=== PATIENT | female | born 1990 | race Caucasian/White ===

== ENCOUNTER 2018-02-25 19:21 | Emergency (ER) | payer OTHER, BC ==
[2018-02-25 19:31] VITALS: BP 119/95
[2018-02-25] MEDS: Acetaminophen/oxyCODONE 325-5 MG Tab PO ONE ×2 (20:14→20:24)
[2018-02-25] MEDS ORDERED: Ondansetron 4 MG Tab.DIS PO ONE (20:18)
--- NOTE | 2018-02-25 21:52 | EDM.PDOC ---
ED HPI GENERAL MEDICAL PROBLEM - General Chief Complaint: Upper Extremity Injury/Pain Stated Complaint: FELL DOWN STAIRS Time Seen by Provider: 02/25/18 19:57 Source of Information: Reports: Patient History Limitations: Reports: No Limitations - History of Present Illness INITIAL COMMENTS - FREE TEXT/NARRATIVE: 27-year-old female presents for evaluation and treatment of injuries sustained from a fall. Patient reports that she felt a full flight of stairs work. 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 She was moving a vacuum, the stairs. Unsure exactly how she fell or what happened. States that she fell down a full flight of stairs. No syncope. She is currently complaining of nausea, headache, left shoulder pain , left hip pain and left knee pain. She denies any syncope, vomiting, vision changes, bloody nose, loose teeth, chest pain, lightheadedness, dizziness, neck pain, back pain or abdominal pain. She reports that she initially had some vision changes but has since resolved. No treatment prior to arrival. This occurred around 1830 this evening. 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 - Past Surgical History HEENT Surgical History: Reports: Oral Surgery, Tonsillectomy Respiratory Surgical History: Reports: None GI Surgical History: Reports: Appendectomy Social & Family History - Tobacco Use Smoking Status *Q: Current Every Day Smoker Years of Tobacco use: 5 Packs/Tins Daily: 0.5 Used Tobacco, but Quit: Yes Month/Year Tobacco Last Used: unknown Second Hand Smoke Exposure: No - Alcohol Use Days Per Week of Alcohol Use: 0 - Recreational Drug Use Recreational Drug Use: No Review of Systems - Review of Systems Review Of Systems: See Below Eyes: Denies: Vision Change Nose: Denies: Epistaxis Mouth/Throat: Denies: Loose Teeth Cardiovascular: Denies: Chest Pain GI/Abdominal: Reports: Nausea. Denies: Abdominal Pain, Vomiting Musculoskeletal: Reports: Joint Pain (left shuolder, left hip and left knee). Denies: Neck Pain, Back Pain Neurological: Reports: Headache, Difficulty Walking. Denies: Syncope ED EXAM, GENERAL - Physical Exam Exam: See Below Exam Limited By: No Limitations General Appearance: Alert, WD/WN, No Apparent Distress, Anxious, Thin Eye Exam: Bilateral Eye: EOMI, Normal Inspection, PERRL Ears: Normal External Exam Nose: Normal Inspection Throat/Mouth: Normal Inspection, Normal Lips, Normal Voice, No Airway Compromise Neck: Normal Inspection, Supple, Non-Tender, Full Range of Motion Respiratory/Chest: No Respiratory Distress, Lungs Clear, Normal Breath Sounds, Chest Non-Tender Cardiovascular: Normal Peripheral Pulses, Regular Rate, Rhythm, No Murmur Peripheral Pulses: 2+: Radial (L), Radial (R), Posterior Tibial (L), Posterior Tibial (R), Dorsalis Pedis (L), Dorsalis Pedis (R) GI/Abdominal: Normal Bowel Sounds, Soft, Non-Tender Back Exam: Normal Inspection Extremities: Normal Inspection, Other (no obvious deformity; tenderness to palpation to the left shoulder, left iliac crest, left greater trochanter and left patella; pain with flexion of the left knee > 70 degrees, full ROm of the left hip, pain wth ROm to the left shoulder unable to flex more than 30 degrees , abduct more than 30 degrees, unable to extend of adduct) Neurological: Alert, Oriented, CN II-XII Intact, Normal Cognition Psychiatric: Normal Affect, Normal Mood Skin Exam: Warm, Dry, Normal Color Course - Vital Signs Last Recorded V/S: Last Vital Signs Temp 37.1 C 02/25/18 19:27 Pulse 102 H 02/25/18 19:27 Resp 16 02/25/18 19:27 BP 119/95 H 02/25/18 19:27 Pulse Ox 99 02/25/18 19:27 - Orders/Labs/Meds Meds: Medications Discontinued Medications Generic Name Dose Route Start Last Admin Trade Name Curt PRN Reason Stop Dose Admin Ondansetron HCl 4 mg 02/25/18 20:18 02/25/18 20:24 Zofran Odt PO 02/25/18 20:19 4 mg ONETIME ONE Administration Oxycodone/Acetaminophen 1 tab 02/25/18 20:08 02/25/18 20:24 Percocet 325-5 Mg PO 02/25/18 20:09 1 tab ONETIME ONE Administration - Radiology Interpretation Free Text/Narrative:: CT of the head without contrast impression per [facility]: No acute intracranial process. xray of the left knee shows no acute fractures or dislocations xray of the pelvis and left hip shows no acute fractures or dislocations xray of the left shoulder shows no acute fractures or discolorations xray of the chest shows scolosis, no acute intrathoracic process - Re-Assessments/Exams Free Text/Narrative Re-Assessment/Exam: 02/25/18 21:46 I reviewed the imaging with the patient. Pain improved is now having most discomfort to the left hip and left proximal femur . Will take out of work for a few days for soft tissue injury. Follow-up with PCP. Discharge instructions as documented. Departure - Departure Time of Disposition: 21:49 Disposition: Home, Self-Care 01 Condition: Fair Clinical Impression: Fall, Soft tissue injury - Discharge Information Prescriptions: Acetaminophen/oxyCODONE [Percocet 325-5 MG] 1 tab PO Q6HR PRN #10 tab PRN Reason: Pain Ondansetron [Zofran ODT] 4 mg PO Q6H PRN #12 tab.dis PRN Reason: Nausea Instructions: Contusion, [id number] Referrals: Dawn Montgomery NP [Primary Care Provider] - Forms: ED Department Discharge, ED Return to Work/School Form Additional Instructions: Rest. Make sure you are Drinking plenty of fluids. Note given for work. May return Saturday if symptoms have improved, light-duty. [id number] Tylenol or Motrin seen for pain relief. For pain not relieved by Tylenol or Motrin he may take Percocet 1 tab every 4-6 hours. Percocet is habit-forming, I recommend you take as few of these as needed to control your pain. Do not take more than 3200 mg of ibuprofen from all sources in 1 day. Do not take more than 4 g of Tylenol from all sources in 1 day. Follow-up primary care provider early next week for recheck of your symptoms. Expect to be sore the next 1-2 weeks. The first 3-4 days will be the worst. Recommed ice or heat for additional pain relief. Please return to the ER if your symptoms change or worsen
--- NOTE | 2018-02-26 07:09 | CR ---
Frontal view of the chest was obtained. Comparison: No prior study. Mild scoliosis is seen. Heart size and mediastinum are normal. Lungs are clear. No acute bony abnormality is appreciated. Impression: 1. Slight scoliosis. Nothing acute is appreciated on frontal chest x-ray. Diagnostic code #2
--- NOTE | 2018-02-26 07:09 | CR ---
Left knee: Four views of the left knee were obtained. Comparison: No previous knee exam. Joint spaces appear preserved. No joint effusion is seen. No fracture, dislocation or other bony abnormality is seen. Impression: 1. No bony abnormality is seen on left knee exam. Diagnostic code #1
--- NOTE | 2018-02-26 07:09 | CR ---
Left shoulder: Three views of the left shoulder were obtained. Comparison: No prior shoulder study. Glenohumeral joint and acromioclavicular joint appear within normal limits. No fracture, dislocation or other bony abnormality is seen. Impression: 1. No abnormality is seen on three-view left shoulder study. Diagnostic code #1
--- NOTE | 2018-02-26 07:09 | CR ---
Pelvis and left hip: AP view of the pelvis was obtained as well as AP and frog-leg lateral views of the left hip. Comparison: No prior study. Incidental IUD is present. Sacroiliac joints are within normal limits. Joint spaces within both hips are maintained. No fracture or other abnormality is seen. Impression: 1. Nothing acute is seen on AP pelvis or on two-view left hip study. Diagnostic code #2
--- NOTE | 2018-02-26 07:09 | CT ---
Head CT Technique: Multiple axial sections were obtained through the brain. Intravenous contrast was not utilized. Comparison: No previous intracranial imaging. Findings: Ventricles along with basal cisterns and sulci over the convexities are within normal limits for the patient's age. No abnormal parenchymal densities are seen. No evidence of intracranial hemorrhage. No midline shift or mass effect is seen. Bone window settings were reviewed which show no acute calvarial abnormality. Mild areas of mucosal thickening are seen within the ethmoid sinuses. Impression: 1. Minimal sinus findings which are felt to be incidental. 2. No acute intracranial abnormality is identified. Diagnostic code #2 I agree with preliminary report issued by [facility] ([facility] preliminary report dictated on 02/25/18, 10:07 PM Central Time)
== END 2018-02-25 22:08 | disposition home or self-care (01) ==
LOC: JD.ED 19:21
DX: S79.912A Unspecified injury of left hip, initial encounter (principal); S49.92XA Unspecified injury of left shoulder and upper arm, initial encounter; S89.92XA Unspecified injury of left lower leg, initial encounter; F17.210 Nicotine dependence, cigarettes, uncomplicated; Z91.011 Allergy to milk products; Z91.09 Other allergy status, other than to drugs and biological substances; W10.9XXA Fall (on) (from) unspecified stairs and steps, initial encounter; Y99.0 Civilian activity done for income or pay
CPT/HCPCS: 70450; 71045; 73030; 73502; 73564; 99284; A9270; 99283

== ENCOUNTER 2021-12-05 20:53 | Emergency (ER) | payer BC, OTHER ==
[2021-12-05] MEDS ORDERED: Albuterol/Ipratropium 3.0-0.5 MG/3 ML Neb Soln NEB ONE (21:03)
--- NOTE | 2021-12-05 21:06 | EDM.PDOC ---
ED HPI GENERAL MEDICAL PROBLEM - General Chief Complaint: Respiratory Problem Stated Complaint: DIFFICULTY BREATHING Time Seen by Provider: 12/05/21 21:03 - History of Present Illness INITIAL COMMENTS - FREE TEXT/NARRATIVE: 31-year-old female presents the emergency room with worsening asthma stomach upset and shortness of breath. The patient's son was just diagnosed with influenza a. Over the last couple days she is been getting upset stomach and increasing shortness of breath. The patient symptoms started Saturday evening well over 48 hours ago. Patient has longstanding asthma. She is tried nebulizers at home without much success. Has some stomach upset with some nausea. Her O2 saturation at home has been adequate but she feels like she just cannot catch her breath. Chest Pain Score (Numeric/FACES): 10 - Related Data Allergies Allergy/AdvReac Type Severity Reaction Status Date / Time almond oil Allergy Unknown Anaphylactic Verified 10/01/18 10:28 Shock milk Allergy Diarrhea Verified 10/01/18 10:28 Home Meds: Home Meds Budesonide/Formoterol Fumarate [Symbicort 160-4.5 Mcg Inhaler] 2 puff INH BID 10/01/18 [History] Ondansetron [Ondansetron ODT] 4 mg PO Q6H PRN #15 tab.rapdis 12/06/21 [Rx] predniSONE [Prednisone] 40 mg PO QAM #10 tablet 12/06/21 [Rx] Past Medical History HEENT History: Reports: None Respiratory History: Reports: Asthma Gastrointestinal History: Reports: None 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 - Past Surgical History HEENT Surgical History: Reports: Oral Surgery, Tonsillectomy Respiratory Surgical History: Reports: None GI Surgical History: Reports: Appendectomy Social & Family History - Caffeine Use Caffeine Use: Reports: None ED ROS GENERAL - Review of Systems Review Of Systems: See Below Constitutional: Reports: Weakness, Fatigue. Denies: Fever, Chills HEENT: Reports: No Symptoms Respiratory: Reports: No Symptoms, Shortness of Breath Cardiovascular: Denies: Chest Pain GI/Abdominal: Reports: Decreased Appetite, Nausea, Vomiting. Denies: Abdominal Pain : Reports: No Symptoms Musculoskeletal: Reports: Other (Neurolysed aches and pains and chest wall discomfort) Skin: Reports: No Symptoms Neurological: Reports: No Symptoms Psychiatric: Reports: No Symptoms Hematologic/Lymphatic: Reports: No Symptoms Immunologic: Reports: No Symptoms ED EXAM, GENERAL - Physical Exam Exam: See Below Exam Limited By: Respiratory Distress General Appearance: Mild Distress (The difficulties and shortness of breath) Eye Exam: Bilateral Eye: Normal Inspection Ears: Normal External Exam, Normal Canal, Hearing Grossly Normal, Normal TMs Nose: Normal Inspection, Normal Mucosa, No Blood Throat/Mouth: Normal Inspection, Normal Lips, Normal Teeth, Normal Gums, Normal Oropharynx, Normal Voice, No Airway Compromise Head: Atraumatic, Normocephalic Neck: Normal Inspection, Supple, Non-Tender, Full Range of Motion. No: Ly mphadenopathy (L), Lymphadenopathy (R) Respiratory/Chest: Decreased Breath Sounds, Wheezing (Few end expiratory wheezes). No: Crackles Cardiovascular: No Edema, No Murmur, Tachycardia GI/Abdominal: Normal Bowel Sounds, Soft, Non-Tender Back Exam: Normal Inspection. No: CVA Tenderness (L), CVA Tenderness (R) Neurological: Alert, Oriented, Normal Cognition Psychiatric: Anxious Course - Vital Signs Last Recorded V/S: Last Vital Signs Temp 36.5 C 12/05/21 21:10 Pulse 111 H 12/05/21 21:10 Resp 40 H 12/05/21 21:10 BP 121/84 12/05/21 21:10 Pulse Ox 99 12/05/21 21:21 - Orders/Labs/Meds Orders: Active Orders 24 hr Category Date Time Status Chest 1V Frontal [CR] Stat Exams 12/05/21 21:11 Taken Labs: Laboratory Tests 12/05/21 12/05/21 12/05/21 Range/Units 21:06 21:15 21:15 WBC 6.69 (3.98-10.04) K/mm3 RBC 5.12 (3.98-5.22) M/mm3 Hgb 16.0 H (11.2-15.7) gm/dl Hct 46.8 H (34.1-44.9) % MCV 91.4 (79.4-94.8) fl MCH 31.3 (25.6-32.2) pg MCHC 34.2 (32.2-35.5) g/dl RDW Std Deviation 41.9 (36.4-46.3) fL Plt Count 265 (182-369) K/mm3 MPV 10.4 (9.4-12.3) fl Neut % (Auto) 72.8 H (34.0-71.1) % Lymph % (Auto) 18.4 L (19.3-51.7) % Riley % (Auto) 8.4 (4.7-12.5) % Eos % (Auto) 0 L (0.7-5.8) Baso % (Auto) 0.3 (0.1-1.2) % Neut # (Auto) 4.87 (1.56-6.13) K/mm3 Lymph # (Auto) 1.23 (1.18-3.74) K/mm3 Riley # (Auto) 0.56 H (0.24-0.36) K/mm3 Eos # (Auto) 0.00 L (0.04-0.36) K/mm3 Baso # (Auto) 0.02 (0.01-0.08) K/mm3 Sodium 141 (136-145) mEq/L Potassium 4.3 (3.5-5.1) mEq/L Chloride 104 (98-107) mEq/L Carbon Dioxide 24 (21-32) mEq/L Anion Gap 17.3 H (5-15) BUN 9 (7-18) mg/dL Creatinine 0.9 (0.55-1.02) mg/dL Est Cr Clr Drug Dosing 82.99 mL/min Estimated GFR (MDRD) > 60 (>60) mL/min BUN/Creatinine Ratio 10.0 L (14-18) Glucose 101 H (70-99) mg/dL Calcium 9.0 (8.5-10.1) mg/dL Total Bilirubin 0.4 (0.2-1.0) mg/dL AST 25 (15-37) U/L ALT 28 (14-59) U/L Alkaline Phosphatase 82 (46-116) U/L Total Protein 7.6 (6.4-8.2) g/dl Albumin 4.0 (3.4-5.0) g/dl Globulin 3.6 gm/dL Albumin/Globulin Ratio 1.1 (1-2) Influenza Type A RNA Positive H (NEGATIVE) Influenza Type B RNA Negative (NEGATIVE) SARS-CoV-2 RNA (ZORAIDA) Negative (NEGATIVE) Meds: Medications Discontinued Medications Generic Name Dose Route Start Last Admin Trade Name Curt PRN Reason Stop Dose Admin Albuterol/Ipratropium 3 ml 12/05/21 21:03 12/05/21 21:21 Albuterol/Ipratropium 3.0-0.5 Mg/3 Ml Neb Soln NEB 12/05/21 21:04 3 ml ONETIME ONE Administration Magnesium Sulfate 2 gm/ Premix 50 mls @ 100 mls/hr 12/05/21 21:10 12/05/21 21:29 IV 12/05/21 21:39 100 mls/hr ONETIME ONE Administration Lorazepam 1 mg 12/05/21 22:23 12/05/21 22:39 Lorazepam 2 Mg/Ml Sdv IVPUSH 12/05/21 22:24 1 mg ONETIME ONE Administration Methylprednisolone Sodium Succinate 125 mg 12/05/21 21:10 12/05/21 21:27 Methylprednisolone Sodium Succinate 125 Mg/2 Ml Sdv IVPUSH 12/05/21 21:11 125 mg ONETIME ONE Administration Ondansetron HCl 4 mg 12/05/21 21:18 12/05/21 21:24 Ondansetron 4 Mg/2 Ml Sdv IVPUSH 12/05/21 21:19 4 mg ONETIME ONE Administration - Re-Assessments/Exams Free Text/Narrative Re-Assessment/Exam: 12/05/21 21:39 Doing much better after nebulizer treatment she has received Solu-Medrol and is getting an infusion of magnesium 12/05/21 22:23 X-ray is unremarkable. Patient is moving air really get 100% on room air she still little anxious and still feels like she cannot catch her breath we will give her a milligram of Ativan and see how this does she is no longer nauseated or vomiting. 12/06/21 00:32 The patient continues to do well she would like to go home at this time. Repeat examination show clear breath sounds. She did cough once. We will discharge her with some Zofran to use as needed and a course of prednisone. She has albuterol nebs at home she can use these every 4 hours as needed. Departure - Departure Time of Disposition: 00:39 Disposition: Home, Self-Care 01 Clinical Impression: Influenza A, Asthma exacerbation - Discharge Information Referrals: Dawn Montgomery NP [Primary Care Provider] - Forms: ED Department Discharge Additional Instructions: Return to the emergency room with any questions problems or worsening symptoms. Use your albuterol nebulizers every 4 hours as needed. You have been started on prednisone take 40 mg starting this morning with breakfast and then every morning for a total of 5 days. I have also given you a prescription for Zofran 4 mg use 1 every 6 hours as needed for nausea and vomiting. Both your prescriptions for the prednisone and the Zofran have been sent electronically to the [facility] pharmacy. Follow-up with your regular physician if needed. You do have influenza A. There is some treatments for this however it needs to be started within 48 hours of the onset of symptoms we are beyond that at this time. Sepsis Event Note (ED) - Focused Exam Vital Signs: Vital Signs Temp Pulse Resp BP Pulse Ox Pulse Ox 12/05/21 21:21 99 12/05/21 21:10 36.5 C 111 H 40 H 121/84 96 - My Orders Last 24 Hours: My Active Orders 12/05/21 21:11 Chest 1V Frontal [CR] Stat - Assessment/Plan Last 24 Hours: My Active Orders 12/05/21 21:11 Chest 1V Frontal [CR] Stat
[2021-12-05] MEDS ORDERED: methylPREDNISolone Sodium Succinate 125 MG/2 ML SDV IVPUSH ONE (21:10)
[2021-12-05] MEDS ORDERED: Magnesium Sulfate/Water 2 GM in Premix Bag 1 BAG IV ONE (21:10)
[2021-12-05 21:13] VITALS: BP 121/84; PULSE 111
[2021-12-05] MEDS ORDERED: Ondansetron 4 MG/2 ML SDV IVPUSH ONE (21:18)
[2021-12-05 22:05] LABS: CORONAVIRUS COVID-19 NAA NEGATIVE (NEGATIVE)
[2021-12-05] MEDS ORDERED: LORazepam 2 MG/ML SDV IVPUSH ONE (22:23)
[2021-12-06] MEDS ORDERED: Ondansetron 4 MG Tab.DIS PO ONE (00:37)
--- NOTE | 2021-12-06 09:40 | CR ---
EXAM: XR CHEST 1 VIEW LOCATION: [facility] DATE/TIME: 12/05/2021 9:33 PM INDICATION: Shortness of breath, cough COMPARISON: None. IMPRESSION: Negative chest. SIGNED BY: John Jones MD 12/05/2021 11:00 PM [facility]
== END 2021-12-06 00:54 | disposition home or self-care (01) ==
LOC: JD.ED 20:53
DX: J10.1 Influenza due to other identified influenza virus with other respiratory manifestations (principal); J45.901 Unspecified asthma with (acute) exacerbation; Z91.011 Allergy to milk products; Z91.048 Other nonmedicinal substance allergy status; Z20.822 Contact with and (suspected) exposure to COVID-19
CPT/HCPCS: 0240U; 36415; 71045; 80053; 85025; 94640; 96365; 96375; 99285; A9270; J2060; J2405; J2930; J3475; J7620-GY

== ENCOUNTER 2024-03-24 04:34 | Inpatient (IN) | payer BC ==
[2024-03-24] MEDS: Nalbuphine 10 MG/ML Syringe IVPUSH ONE (05:21)
[2024-03-24] MEDS: Sodium Chloride 0.9% 10 ML Syringe FLUSH PRN (05:21)
[2024-03-24] MEDS ORDERED: Ondansetron 4 MG in Sodium Chloride 0.9% 50 ML IV ONE (06:34)
[2024-03-24] MEDS: Ondansetron 4 MG/2 ML SDV IV ONE (06:40)
[2024-03-24] MEDS ORDERED: Lidocaine 1% 50 ML MDV INJECT PRN (06:42)
[2024-03-24] MEDS ORDERED: Ondansetron 4 MG/2 ML SDV IVPUSH PRN (06:42)
[2024-03-24] MEDS ORDERED: Oxytocin/Lactated Ringers 30 UNIT/500 ML BAG IV SCH (06:45)
[2024-03-24 07:11] LABS: BASOPHILS PERCENT AUTO 0.3 % (0.0-1.0); EOSINOPHILS PERCENT AUTO 0.3 % (0.0-6.0); HEMATOCRIT 37.5 % (37.0-47.0); HEMOGLOBIN 12.9 gm/dl (12.0-16.0); IMMATURE GRAN ABSOLUTE AUTO 0.05 K/mm3 (0.00-0.05); IMMATURE GRAN PERCENT AUTO 0.4 % (0.0-0.4); LYMPHOCYTES ABSOLUTE AUTO 1.8 K/mm3 (1.0-4.8); LYMPHOCYTES PERCENT AUTO 14.9 % (24.0-44.0); MEAN CORPUSCULAR HEMOGLOBIN 31.1 pg (28.0-32.0); MEAN CORPUSCULAR HGB CONC 34.4 g/dl (32.0-36.0); MEAN CORPUSCULAR VOLUME 90.4 fl (83.0-99.0); MEAN PLATELET VOLUME 11.3 fl (9.4-12.3); MONOCYTES ABSOLUTE AUTO 0.8 K/mm3 (0.0-0.8); MONOCYTES PERCENT AUTO 6.6 % (0.0-8.0); NEUTROPHILS ABSOLUTE AUTO 9.1 K/mm3 (1.8-7.7); NEUTROPHILS PERCENT AUTO 77.5 % (41.0-71.0); PLATELET COUNT,PLT 231 K/mm3 (150-400); RED BLOOD CELL COUNT 4.15 M/mm3 (4.10-5.30); WHITE BLOOD CELL COUNT,WBC 11.71 K/mm3 (3.9-11.3)
[2024-03-24] MEDS: Nalbuphine 10 MG/ML Syringe IVPUSH PRN (08:10)
[2024-03-24] MEDS: Sodium Chloride 0.9% 10 ML Syringe FLUSH SCH (08:13)
[2024-03-24] MEDS ORDERED: ePHEDrine 50 MG/ML SDV IVPUSH PRN (08:46)
[2024-03-24] MEDS ORDERED: fentaNYL 100 MCG/2 ML SDV EPIDUR PRN (08:46)
[2024-03-24] MEDS ORDERED: Bupivacaine/fentaNYL/NS 100 ML Bag EPIDUR PRN (08:46)
[2024-03-24] MEDS ORDERED: diphenhydrAMINE 50 MG/ML SDV IVPUSH PRN (08:46)
[2024-03-24] MEDS: Calcium Carbonate 500 MG Tab.Chew PO PRN (08:58)
[2024-03-24] MEDS: Lactated Ringers 1,000 ML IV SCH (10:00)
[2024-03-24] MEDS: Oxytocin 10 Units/1 ML SDV IM ONE (11:12)
[2024-03-24] MEDS ORDERED: Measles, Mumps & Rubella Vaccine 0.5 ML SDV SUBCUT ONE (11:23)
[2024-03-24] MEDS ORDERED: Ibuprofen 600 MG Tab PO PRN (11:23)
[2024-03-24] MEDS: Witch Hazel Medicated Pads 40/Jar TOP PRN (11:34)
[2024-03-24] MEDS: Benzocaine/Menthol 20%-0.5% Spray 78 GM Cannister TOP PRN (11:35)
[2024-03-24] MEDS: Acetaminophen 325 MG Tab PO PRN (11:39)
[2024-03-24] MEDS: Docusate Sodium 100 MG Cap PO PRN (17:02)
[2024-03-25 09:56] VITALS: BP 107/72; PULSE 68
[2024-03-25] MEDS: Measles, Mumps & Rubella Vaccine 0.5 ML SDV SUBCUT ONE (10:22)
== END 2024-03-25 13:15 | disposition home or self-care (01) | DRG 560 ==
LOC: JD.OBCHECK 04:34 → JD.OB 04:37 → JD.OBCHECK 06:42 → OBSVTOIN 10:51 → JD.MS 10:52 → JD.OB 10:57
PROVIDERS: ADMIT Obstetrics & Gynecology; ATTEND Obstetrics & Gynecology
PROC: 10E0XZZ Delivery of Products of Conception, External Approach (ICD-10-PCS; principal; 2024-03-24)
PROC: 3E0234Z Introduction of Serum, Toxoid and Vaccine into Muscle, Percutaneous Approach (ICD-10-PCS; 2024-03-25)
DX: O80 Encounter for full-term uncomplicated delivery (principal); Z3A.37 37 weeks gestation of pregnancy; Z37.0 Single live birth; Z91.048 Other nonmedicinal substance allergy status; Z91.030 Bee allergy status; Z91.011 Allergy to milk products; Z79.51 Long term (current) use of inhaled steroids; Z79.899 Other long term (current) drug therapy; Z90.89 Acquired absence of other organs; Z90.49 Acquired absence of other specified parts of digestive tract; Z98.890 Other specified postprocedural states; Z87.891 Personal history of nicotine dependence; Z28.39 Other underimmunization status; Z23 Encounter for immunization
CPT/HCPCS: 36415; 59025; 85025; 86592; 86850; 86900; 86901; 90471; 90707; A9270-GY; J2300; J2405; J2590; J3490; J7120